=== PATIENT | male | born 1975 | race Two or more races ===

== ENCOUNTER 2016-04-07 22:29 | Inpatient (IN) | payer SELFPAY ==
[~2016-04-07] VITALS: Ht 167.6 cm; Wt 64.3 kg
[2016-04-07 23:25] LABS: Urine RBC None Seen /hpf (0 - 3)
[2016-04-07 23:38] LABS: Urine Bilirubin Negative (Negative); Urine Blood Negative /uL (Negative); Urine Color Colorless (Yellow); Urine Ketone Negative (Negative); Urine Nitrite Negative (Negative); Urine Urobilinogen Normal (Negative); Urine pH 6.5 (5.0-8.0)
[2016-04-07 23:39] LABS: Urine Glucose 4+ mg/dL (Normal)
[2016-04-07 23:46] LABS: Basophils # (auto) 0 uL; Basophils % (auto) 0.4 % (0.0-2.0); Eosinophils # (auto) 0.1 uL; Eosinophils % (auto) 1.3 % (0.0-7.0); Hematocrit 43.5 % (41.0-53.0); Hemoglobin 13.8 g/dL (13.5-17.5); Lymphocytes % (auto) 17.5 % (10.0-50.0); Mean Corpuscular Hemoglobin 27.8 pg (28.0-32.0); Mean Corpuscular Hgb Conc. 31.7 g/dL (32.0-36.0); Mean Corpuscular Volume 87.7 fL (80.0-100.0); Mean Platelet Volume 9.3 fL (7.4-10.4); Monocytes % (auto) 8.7 % (0.0-12.0); Neutrophils # (auto) 8.1 uL; Neutrophils % (auto) 72.1 % (37.0-80.0); Platelet Count (auto) 270 10^3/uL (140-450); Red Cell Distribution Width 11.9 % (11.6-16.0); White Blood Cell 11.2 10^3/uL (4.4-10.8)
[2016-04-07 23:56] LABS: Albumin 3.2 g/dL (3.4-5.0); Calcium 8.6 mg/dL (8.5-10.1)
[2016-04-08] LABS: BUN/Creatinine Ratio 15.4; Bilirubin, Total 0.2 mg/dL (0.2-1.0); Total Protein 7.6 g/dL (6.4-8.2)
[2016-04-08] MEDS ORDERED: ONDANSETRON HCL 4 MG/2 ML VIAL IV ONE (05:00)
[2016-04-08] MEDS ORDERED: SODIUM CHLORIDE 0.9% 1,000 ML IV ONE (05:00)
[2016-04-08] MEDS ORDERED: cefTRIAXone SOD 1,000 MG VL IM ONE (05:00)
[2016-04-08] MEDS ORDERED: MORPHINE SULFATE 4 MG/ML SYRG IV ONE (05:00)
[2016-04-08] MEDS ORDERED: InsuLIN REG 1unit/0.01ml Soln (100units/ml) IV ONE (05:00)
[2016-04-08] MEDS ORDERED: cefTRIAXone 1GM/50ML D5W 50 ML IV ONE (05:45)
[2016-04-08] MEDS ORDERED: MORPHINE SULF INJ 2 MG/ML SYRINGE 1ML IV PRN (11:00)
[2016-04-08] MEDS ORDERED: DEXTROSE (50%) 50ML SYRG IV PRN (11:00)
[2016-04-08] MEDS ORDERED: metFORMIN HYDROCHLORIDE 500 MG TAB PO ONE (11:00)
[2016-04-08] MEDS ORDERED: TEMAZEPAM 15 MG CAP PO PRN (11:00)
[2016-04-08] MEDS ORDERED: DOCUSATE SOD 100 MG CAP PO PRN (11:00)
[2016-04-08] MEDS ORDERED: HYDROcodone-ACET 5/325MG TAB PO PRN (11:00)
[2016-04-08] MEDS ORDERED: ONDANSETRON HCL 4 MG/2 ML VIAL IV PRN (11:00)
[2016-04-08] MEDS ORDERED: ACETAMINOPHEN 325 MG TAB PO PRN (11:00)
[2016-04-08] MEDS ORDERED: ZINC SULFATE 220 MG CAP PO ONE (11:15)
[2016-04-08] MEDS ORDERED: MULTIPLE VITAMIN TAB PO ONE (11:15)
[2016-04-08] MEDS ORDERED: ASCORBIC ACID 500 MG TAB PO ONE (11:15)
[2016-04-08] MEDS: ACCU-CHEK COMFORT CURVE STRIP VI SCH ×3 (11:30→22:04)
[2016-04-08] MEDS: InsuLIN REG 1unit/0.01ml Soln (100units/ml) SC SCH ×2 (11:30→17:46)
[2016-04-08 12:52] VITALS: BP 129/77
[2016-04-08] MEDS: SODIUM CHLOR 0.9% PF (SALINE LOCK) 10ML VIAL IV SCH ×2 (14:00→22:03)
[2016-04-08 16:00] VITALS: BP 118/76
[2016-04-08] MEDS: CLINDAMYCIN 300MG IV 50 ML IV SCH ×2 (16:41→22:03)
[2016-04-08] MEDS: metFORMIN HYDROCHLORIDE 500 MG TAB PO SCH (18:07)
[2016-04-08 22:00] VITALS: BP 122/77
[2016-04-08] MEDS ORDERED: InsuLIN REG 1unit/0.01ml Soln (100units/ml) SC SCH (22:00)
[2016-04-08] MEDS: ASCORBIC ACID 500 MG TAB PO SCH (22:03)
[2016-04-09 05:33] VITALS: BP 118/80
[2016-04-09] MEDS: SODIUM CHLOR 0.9% PF (SALINE LOCK) 10ML VIAL IV SCH (05:59)
[2016-04-09] MEDS: CLINDAMYCIN 300MG IV 50 ML IV SCH (05:59)
[2016-04-09] MEDS: metFORMIN HYDROCHLORIDE 500 MG TAB PO SCH (05:59)
[2016-04-09] MEDS: InsuLIN REG 1unit/0.01ml Soln (100units/ml) SC SCH ×2 (06:00→11:30)
[2016-04-09] MEDS: ACCU-CHEK COMFORT CURVE STRIP VI SCH ×2 (06:00→11:54)
[2016-04-09 06:21] LABS: Basophils # (auto) 0 uL; Basophils % (auto) 0.1 % (0.0-2.0); Eosinophils # (auto) 0.1 uL; Eosinophils % (auto) 1.1 % (0.0-7.0); Hematocrit 44.7 % (41.0-53.0); Hemoglobin 14.9 g/dL (13.5-17.5); Lymphocytes # (auto) 2.5 uL; Lymphocytes % (auto) 18.4 % (10.0-50.0); Mean Corpuscular Hgb Conc. 33.4 g/dL (32.0-36.0); Mean Platelet Volume 9.5 fL (7.4-10.4); Monocytes # (auto) 1.3 uL; Monocytes % (auto) 9.7 % (0.0-12.0); Neutrophils # (auto) 9.5 uL; Neutrophils % (auto) 70.7 % (37.0-80.0); Platelet Count (auto) 253 10^3/uL (140-450); Red Cell Distribution Width 11.9 % (11.6-16.0); White Blood Cell 13.4 10^3/uL (4.4-10.8)
[2016-04-09 06:25] LABS: Calcium 9.3 mg/dL (8.5-10.1); Potassium 3.9 mmol/L (3.5-5.1)
[2016-04-09 06:28] LABS: Albumin 3.2 g/dL (3.4-5.0)
[2016-04-09 06:30] LABS: Bilirubin, Total 0.4 mg/dL (0.2-1.0); Total Protein 7.6 g/dL (6.4-8.2)
[2016-04-09 08:48] VITALS: BP 112/72
[2016-04-09] MEDS ORDERED: cefTRIAXone 1GM/50ML D5W 50 ML IV SCH (09:00)
[2016-04-09] MEDS ORDERED: MULTIPLE VITAMIN TAB PO SCH (10:00)
[2016-04-09] MEDS ORDERED: ZINC SULFATE 220 MG CAP PO SCH (10:00)
[2016-04-09] MEDS: ASCORBIC ACID 500 MG TAB PO SCH (10:15)
== END 2016-04-09 14:25 | disposition home or self-care (01) | DRG 728 ==
LOC: ER 22:46 → OVERFLOW 22:47 → TELE-E-ADS 04-08 11:52 → CENTRAL 04-08 16:11
PROVIDERS: ADMIT Internal Medicine; ATTEND Internal Medicine
DX: N49.2 Inflammatory disorders of scrotum (principal); N45.4 Abscess of epididymis or testis; L03.314 Cellulitis of groin; E44.0 Moderate protein-calorie malnutrition; E87.1 Hypo-osmolality and hyponatremia; L72.3 Sebaceous cyst; E11.65 Type 2 diabetes mellitus with hyperglycemia; Z83.3 Family history of diabetes mellitus; Z68.22 Body mass index [BMI] 22.0-22.9, adult
CPT/HCPCS: 36415; 76870; 80053; 81001; 82010; 82962; 83036; 85025; 87040; 96365; 96375; J0696; J1815; J2405; J3490

== ENCOUNTER 2022-12-02 17:50 | Emergency (ER) | payer MEDICAID ==
[~2022-12-02] VITALS: Ht 167.6 cm; Wt 83.4 kg
[2022-12-02] MEDS ORDERED: FLUORESCEIN SOD OPTH TEST STRIP LEFTEYE ONE (20:30)
[2022-12-02] MEDS ORDERED: TETRACAINE HCL 0.5% OPTH(EYE) SOLN 4ML LEFTEYE ONE (20:30)
[2022-12-02] MEDS ORDERED: ERY05OO OP (22:01)
[2022-12-03 01:41] VITALS: BP 144/85; PULSE 96; RESP 16; TEMP 98.8; O2SAT 98
== END 2022-12-02 20:40 | disposition home or self-care (01) ==
LOC: ER 17:50
DX: T15.92XA Foreign body on external eye, part unspecified, left eye, initial encounter (principal); W22.8XXA Striking against or struck by other objects, initial encounter; Y93.89 Activity, other specified; Y92.89 Other specified places as the place of occurrence of the external cause; Y99.8 Other external cause status

== ENCOUNTER 2023-10-09 23:09 | Emergency (ER) | payer MEDICAID ==
[~2023-10-09] VITALS: Ht 167.6 cm; Wt 85.7 kg
[~2023-10-09 23:09] MED LIST: ERY05OO OP
[2023-10-09 23:18] VITALS: BP 101/70; PULSE 104; RESP 16; TEMP 100.3; O2SAT 97
[2023-10-10] MEDS ORDERED: ACET500T58 PO (00:47)
[2023-10-10] MEDS ORDERED: CEPH250C PO (00:47)
[2023-10-10] MEDS ORDERED: BACDST PO (00:47)
[2023-10-10] MEDS ORDERED: IBUP-1455 PO (00:47)
[2023-10-10] MEDS: SULFAMETHOX W/TRIMETH(800/160MG) DS TAB PO ONE (01:08)
[2023-10-10] MEDS: HYDROcodone-ACET 5/325MG TAB PO ONE (01:08)
[2023-10-10] MEDS: KETOROLAC TROMETH 60MG/2ML VIAL IM ONE (01:08)
[2023-10-10] MEDS: cefTRIAXone SOD 1,000 MG VL IM ONE (01:08)
== END 2023-10-10 01:15 | disposition home or self-care (01) ==
LOC: ER 23:09
DX: L08.9 Local infection of the skin and subcutaneous tissue, unspecified (principal)
CPT/HCPCS: 96372; 99284; J0696; J1885

== ENCOUNTER 2024-07-09 20:36 | Emergency (ER) | payer MEDICAID ==
[~2024-07-09] VITALS: Ht 170.2 cm; Wt 80.0 kg
[~2024-07-09 20:36] MED LIST changes: +ACET500T58 PO; +BACDST PO; +CEPH250C PO; +IBUP-1455 PO
[2024-07-09 22:04] LABS: COVID19 ANTIGEN SOFIA FIA NEGATIVE (NEGATIVE); Rapid Influenza A Negative (Negative); Rapid Influenza B Negative (Negative)
--- NOTE | 2024-07-09 22:13 | ED.PDOC ---
SOB-HPI HPI Comments This is a 48-year-old male patient presents to the ED chief complaint loss of voice and sore throat. States flu-like symptoms x4 days he notes had fevers sore throat and now he lost his voice. He has difficulty breathing, shortness of breath, chest pain, nausea, vomiting or diarrhea reports no recent ill contact or travel Chief Complaint: Flu like Time Seen by MD: 20:44 Primary Care Provider: UNKNOWN Reviewed notes: Nurses Notes, Medications, Allergies Information Source: Patient Mode of Arrival: Ambulatory Past Medical History PAST MEDICAL HISTORY: Denies Surgical History: Denies all surgeries Family History Family History: Unknown Social History Smoker: Non-Smoker Alcohol: Denies ETOH Use Drugs: Denies Drug Use Lives In: Home Constitutional: reports: chills, fever EENTM: reports: nasal discharge, throat pain; denies: blurred vision, double vision, ear bleeding, ear discharge, ear drainage, ear pain, ear ringing, eye pain, eye redness, hearing loss, mouth pain, mouth swelling, nose bleeding, nose congestion, nose pain, photophobia, tearing, throat swelling, voice changes, others Respiratory: reports: cough; denies: hemoptysis, orthopnea, SOB at rest, shortness of breath, SOB with excertion, stridor, wheezing, others Cardiovascular: denies: chest pain, dizzy spells, diaphoresis, Dyspnea on exertion, edema, irregular heart beat, left arm pain, lightheadedness, palpitations, PND, syncope, others Gastrointestinal: denies: abdomen distended, abdominal pain, blood streaked bowels, constipated, diarrhea, dysphagia, difficulty swallowing, hematemesis, melena, nausea, poor appetite, poor fluid intake, rectal bleeding, rectal pain, vomiting, others Genitourinary: denies: burning, dysuria, flank pain, frequency, hematuria, incontinence, penile discharge, penile sore, pain, testicle pain, testicle swelling, urgency, others Neurological: denies: dizziness, fainting, headache, left sided numbness, left sided weakness, numbness, paresthesia, pre-existing deficit, right sided numbness, right sided weakness, seizure, speech problems, tingling, tremors, weakness, others Musculoskeletal: denies: back pain, gout, joint pain, joint swelling, muscle pain, muscle stiffness, neck pain, others Integumetry: denies: bruises, change in color, change in hair/nails, dryness, laceration, lesions, lumps, rash, wounds, others Allergic/Immunocompromised: denies: Difficulty Healing, Frequent Infections, Hives, Itching, others Hematologic/Lymphatic: denies: anemia, blood clots, easy bleeding, easy bruising, swollen glands, others Endocrine: denies: excessive hunger, excessive sweating, excessive thirst, excessive urination, flushing, intolerance to cold, intolerance to heat, unexplained weight gain, unexplained weight loss, others Psychiatric: denies: anxiety, bipolar disorder, depression, hopeless, panic disorder, schizophrenia, sleepless, suicidal, others Physical Exam General Appearance: No Apparent Distress, Normal HEENT: Pharyngeal Erythema, TMs Normal Neck: Full Range of Motion, Non-Tender Respiratory: Lungs Clear, No Respiratory Distress, Normal Breath Sounds Cardiovascular: No Edema, No JVD, No Murmur, No Gallop, Normal Peripheral Pulses, Regular Rate/Rhythm Breast Exam: Deferred Gastrointestinal: No Organomegaly, Non Tender, No Pulsatile Mass, Normal Bowel Sounds, Soft Genitalia: Deferred Pelvic: Deferred Rectal: Deferred Extremities: Normal capillary refill, Normal inspection, Normal range of motion, Non-tender, No pedal edema Musculoskeletal : Apperance: Normal Neurologic: Alert, high lead yarder II-XII nml as Tested, No Motor Deficits, Normal Affect, Normal Mood, No Sensory Deficits Cerebellar Function: Normal Reflexes: Normal Skin: Dry, Normal Color, Warm Lymphatic: No Adenopathy Was a procedure done? Was a procedure done?: No Differential Dx Differential Diagnosis: Pneumonia, Sinusitis, URI X-Ray, Labs, Meds, VS Vital Signs Date Time Temp Pulse Resp B/P (MAP) Pulse Ox O2 Delivery O2 Flow Rate FiO2 07/09/24 22:29 98.3 90 18 122/79 (93) 98 98.3 07/09/24 20:45 98.3 90 18 122/79 (93) 98 98.3 07/09/24 20:45 18 98 Room Air Lab Test 07/09/24 20:53 Range/Units Influenza Type A Antigen Negative Negative Influenza Type B Antigen Negative Negative SARS-CoV-2 Antigen (Rapid) Negative NEGATIVE Current Medications Medications (Trade) Dose Ordered Sig/Barbara Route Start Time Stop Time Status Last Admin Dexamethasone Sodium Phosphate (Decadron Injection) 10 mg ONCE ONCE IM 07/09/24 22:30 07/09/24 22:31 DC 07/09/24 22:29 X-Ray, Labs, Meds, VS Comment Influenza and COVID swabs are negative URI and laryngitis we will script antibiotic patient given Decadron 10 mg IM. Reports improvement in symptoms requesting discharge at this time. Take medications as prescribed side effects discussed. Rest increase p.o. fluids with electrolytes. Follow up with your PCP 1-2 days as necessary ER return precautions given patient indicates understanding agrees with discharge plan of care. Time of 1ST Reevaluation: 22:12 Reevaluation 1ST: Unchanged Patient Education/Counseling: Diagnosis, Treatment, Prognosis, Need For Follow Up Family Education/Counseling: Diagnosis, Treatment, Prognosis, Need For Follow Up Departure 1 Departure Time of Disposition: 22:11 Impression: Primary Impression: Upper respiratory infection Qualified Codes: J06.9 - Acute upper respiratory infection, unspecified Disposition: 01 HOME / SELF CARE / HOMELESS Condition: Stable e-Prescriptions Amoxicillin & Pot Clavulanate (AUGMENTIN TABLET) 875 Mg Tb 875 MG PO BID for 7 Days, #14 TAB Prov: SURJIT MANN 07/09/24 Discharged With: Friend Critical Care Note Critical Care Time?: No Stability Stability form required: No Heart Score Heart Score: Heart Score Response (Comments) Value History N/A 0 EKG N/A 0 Age 45-64 1 Risk Factors N/A 0 Troponin N/A 0 Total 1 SURJIT MANN Jul 09, 2024 22:13
[2024-07-09] MEDS ORDERED: AUG875T PO (22:18)
[2024-07-09 22:29] VITALS: BP 122/79; PULSE 90; RESP 18; TEMP 98.3; O2SAT 98
[2024-07-09] MEDS: DexAMETHasone SOD PHOS 10MG/1ML VIAL INJ IM ONE (22:29)
== END 2024-07-09 22:31 | disposition home or self-care (01) ==
LOC: ER 20:36
DX: J06.9 Acute upper respiratory infection, unspecified (principal); Z20.822 Contact with and (suspected) exposure to COVID-19
CPT/HCPCS: 36415; 87426; 87804; 96372; 99283; J1100